=== PATIENT | male | born 1980 | race Asian ===

== ENCOUNTER 2024-05-31 11:21 | Emergency (ER) | payer OTHER ==
[2024-05-31] MEDS ORDERED: LIDOCAINE HCL JELLY 2% 6 ML SYRINGE TOP ONE (11:46)
[2024-05-31] MEDS ORDERED: KETOROLAC 30 MG/ML INJ ONE (12:04)
--- NOTE | 2024-05-31 12:25 | ER ---
Nurse's Notes [facility] Name: Ashanti Lovelace Age: 43 yrs Sex: Male : 1980 Arrival Date: 05/31/2024 Time: 11:21 Bed 18 Private MD: Diagnosis: Unspecified hemorrhoids Presentation: 05/31 11:32 Chief complaint: Patient states: was seen at PCP for hemorrhoids and had a procedure iw done, is in a lot of pain after procedure. Coronavirus screen: At this time, the client does not indicate any symptoms associated with coronavirus-19. Ebola Screen: No symptoms or risks identified at this time. Initial Sepsis Screen: Does the patient meet any 2 criteria? No. Patient's initial sepsis screen is negative. Does the patient have a suspected source of infection? No. Patient's initial sepsis screen is negative. Risk Assessment: Do you want to hurt yourself or someone else? Patient reports no desire to harm self or others. Onset of symptoms was May 31, 2024. 11:32 Acuity: OK 3 iw 11:32 Method Of Arrival: Wheelchair iw Historical: - Allergies: 11:34 No Known Allergies; iw - PMHx: 11:34 Diabetes mellitus; Hypertensive disorder; Hypercholesterolemia; iw - PSHx: 11:34 knee; iw - Immunization history:: Adult Immunizations up to date. - Infectious Disease History:: Denies. - Social history:: Smoking status: Patient reports use of chewing tobacco. Screenin:50 [facility] ED Fall Risk Assessment (Adult) History of falling in the last 3 months, cm10 including since admission No falls in past 3 months (0 pts) Confusion or Disorientation No (0 pts) Intoxicated or Sedated No (0 pts) Impaired Gait No (0 pts) Mobility Assist Device Used No (0 pt) Altered Elimination No (0 pt) Score/Fall Risk Level 0 - 2 = Low Risk Oriented to surroundings, Maintained a safe environment, Hourly rounding (assess needs \T\ fall precautionary measures) done. Abuse screen: Denies threats or abuse. Denies injuries from another. Nutritional screening: No deficits noted. Tuberculosis screening: No symptoms or risk factors identified. Assessment: 11:50 General: Appears in no apparent distress. uncomfortable, Behavior is calm, cooperative. cm10 Pain: Complains of pain in Rectum. Neuro: No deficits noted. Level of Consciousness is awake, alert, obeys commands, Oriented to person, place, time, situation, Appropriate for age. Respiratory: No deficits noted. Airway is patent Respiratory effort is even, unlabored, Respiratory pattern is regular, symmetrical. GI: Rectal exam: Hemorrhoids noted, Reports hemorrhoids. Vital Signs: 11:32 BP 157 / 98; Pulse 91; Resp 16; Temp 97.6; Pulse Ox 100% on R/A; Weight 78.93 kg; iw Height 5 ft. 7 in. ; Pain 10/10; 11:32 Body Mass Index 27.25 (78.93 kg, 170.18 cm) iw 11:32 Pain Scale: Adult iw ED Course: 11:22 Patient arrived in ED. im 11:31 Nehemiah Santana MD is Attending Physician. ec2 11:34 Triage completed. iw 11:34 Arm band placed on. iw 11:43 Grisel Neff RN is Primary Nurse. cm10 11:50 Patient has correct armband on for positive identification. Bed in low position. Call cm10 light in reach. Provided Education on: ER process and procedures.. 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 Patient did not have IV access during this cm10 emergency room visit. Administered Medications: 11:54 Drug: Lidocaine Mucous Membrane Gel 2 % 1 application Mucous Membrane once Route: cm10 Mucous Membrane; 12:11 Drug: Ketorolac IM 30 mg IM once Route: IM; Site: left gluteus; cm10 12:51 Follow up: Response: No adverse reaction; Pain is decreased cm10 Medication: 11:50 VIS not applicable for this client. cm10 Outcome: 12:25 Discharge ordered by . ec2 12:50 Discharged to home ambulatory, with family, cm10 12:50 Condition: good 12:50 Discharge instructions given to patient, Instructed on discharge instructions, follow up and referral plans. medication usage, Demonstrated understanding of instructions, follow-up care, medications, Prescriptions given X 2, 12:51 Patient left the ED. cm10 Signatures: Latoya Lehman RN [id number] Agustina Schultz im Grisel Neff RN RN cm10 Nehemiah Santana MD MD ec2 Corrections: (The following items were deleted from the chart) 11:35 11:32 BP 157 / 98; Pulse 91bpm; Resp 16bpm; Pulse Ox 100% RA; Temp 97.6F; iw iw
--- NOTE | 2024-05-31 12:25 | EDPHYS ---
Physician Documentation [facility] Name: Ashanti Lovelace Age: 43 yrs Sex: Male : 1980 Arrival Date: 05/31/2024 Time: 11:21 Bed 18 Private MD: ED Physician Nehemiah Santana HPI: 05/31 11:36 This 43 yrs old Male presents to ER via Wheelchair with complaints of Rectal Pain. ec2 11:36 Patient arrives today for evaluation of rectal pain. Patient reports that he has a ec2 history of hemorrhoids, reports that he had a hemorrhoidectomy earlier this morning and states that the numbing cream is wearing off and he is having worsening pain. No other concerns.. Historical: - Allergies: 11:34 No Known Allergies; iw - PMHx: 11:34 Diabetes mellitus; Hypertensive disorder; Hypercholesterolemia; iw - PSHx: 11:34 knee; iw - Immunization history:: Adult Immunizations up to date. - Infectious Disease History:: Denies. - Social history:: Smoking status: Patient reports use of chewing tobacco. ROS: 11:36 Constitutional: as per hpi ec2 Exam: 11:36 Constitutional: GEN: NAD Head: atraumatic Eyes: EOMI Ears: External ears are ec2 normal. CV: regular rate LUNGS: no respiratory distress ABD: non-distended. : hemorrhoid present, incision, scant bleeding present SKIN: no evidence of rashes MSK: no evidence of trauma Vital Signs: 11:32 BP 157 / 98; Pulse 91; Resp 16; Temp 97.6; Pulse Ox 100% on R/A; Weight 78.93 kg; iw Height 5 ft. 7 in. ; Pain 10/10; 11:32 Body Mass Index 27.25 (78.93 kg, 170.18 cm) iw 11:32 Pain Scale: Adult iw MDM: 11:32 Patient medically screened. ec2 11:37 Data reviewed: vital signs. ED course: Patient arrives today for evaluation of rectal ec2 pain. Examination remarkable for rectal findings as above. . 12:24 ED course: Apply topical lidocaine with improvement in symptoms. Will discharge home. ec2 Instructed to follow-up PCP and general surgery. Return precautions given.. Administered Medications: 11:54 Drug: Lidocaine Mucous Membrane Gel 2 % 1 application Mucous Membrane once Route: cm10 Mucous Membrane; 12:11 Drug: Ketorolac IM 30 mg IM once Route: IM; Site: left gluteus; cm10 12:51 Follow up: Response: No adverse reaction; Pain is decreased cm10 Disposition Summary: 05/31/24 12:25 Discharge Ordered Notes: Location: Home ec2 Condition: Stable ec2 Diagnosis - Unspecified hemorrhoids ec2 Followup: ec2 - With: Private Physician - When: - Reason: Re-evaluation by your physician Discharge Instructions: - Discharge Summary Sheet ec2 - Hemorrhoids ec2 Forms: - Medication Reconciliation Form ec2 - Antibiotic Education ec2 - Prescription Opioid Use ec2 - Patient Portal Instructions ec2 - Leadership Thank You Letter ec2 Prescriptions: - lidocaine 4 % gel - apply 1 application RECTAL route 3 times per day; 1 unit; Refills: 0, Product ec2 Selection Permitted - Anusol-HC 25 mg Rectal Suppository - insert 1 suppository RECTAL route every 12 hours As needed; 20 suppository; ec2 Refills: 0, Product Selection Permitted Signatures: Latoya Lehman RN RN Grisel Neff RN RN cm10 Nehemiah Santana MD MD ec2 Corrections: (The following items were deleted from the chart) 11:46 11:36 Constitutional: GEN: NAD Head: atraumatic Eyes: EOMI Ears: External ears are ec2 normal. CV: regular rate LUNGS: no respiratory distress ABD: non-distended SKIN: no evidence of rashes MSK: no evidence of trauma ec2
[2024-05-31 12:56] VITALS: BP 157/98; TEMP 97.6; O2SAT 100
== END 2024-05-31 12:51 | disposition home or self-care (01) ==
LOC: ER 11:21
DX: K64.9 Unspecified hemorrhoids (principal); Z98.890 Other specified postprocedural states